=== PATIENT | male | born 1975 | race Caucasian/White ===

== ENCOUNTER 2017-02-20 15:47 | Emergency (ER) | payer OTHER ==
--- NOTE | 2017-02-20 15:59 | Emergency Department Report ---
Chief Complaint: Chest Pain Stated Complaint: CHEST PAIN Time Seen by Provider: 02/20/17 15:57 - HPI History of Present Illness: PT c/o chest pain since last night. pt states he was at work when the chest pain started. - ROS Review of Systems: pain radiating down his L arm - Exam Physical Exam: PT looks well, non toxic. no acute resp distress no focal weakness MSE screening note: Focused history and physical exam performed. Due to findings the following was ordered: ekg, labs, xr ED Disposition for MSE Condition: Stable
[2017-02-20 16:15] LABS: Basophils % (Auto) 1.1 % (0.0-1.8); Eosinophils % (Auto) 1.1 % (0.0-4.3); Hematocrit 42.3 % (35.5-45.6); Hemoglobin 14.3 gm/dl (11.8-15.2); Mean Corpuscular HGB Conc 34 % (32-34); Mean Corpuscular Hemoglobin 31 pg (28-32); Mean Corpuscular Volume 91 fl (84-94); Platelet Count 201 K/mm3 (140-440); Red Blood Count 4.66 M/mm3 (3.65-5.03); Red Cell Distribution Width 14.7 % (13.2-15.2); White Blood Count 6.7 K/mm3 (4.5-11.0)
[2017-02-20 16:24] LABS: INR 0.94 (0.87-1.13)
[2017-02-20 16:25] LABS: Partial Thromboplastin Time 29.1 Sec. (24.2-36.6)
[2017-02-20 16:35] LABS: Alanine Aminotransferase 17 units/L (7-56); Albumin 4.2 g/dL (3.9-5); Albumin/Globulin Ratio 1.4 %; Alkaline Phosphatase 67 units/L (35-129); Anion Gap 19 mmol/L; BUN/Creatinine Ratio 9.09; Blood Urea Nitrogen 10 mg/dL (9-20); Carbon Dioxide 23 mmol/L (22-30); Chloride 102.3 mmol/L (98-107); Creatine Kinase 269 units/L (55-170); Glucose 116 mg/dL (75-100); Potassium 3.6 mmol/L (3.6-5.0); Sodium 141 mmol/L (137-145); Total Protein 7.3 g/dL (6.3-8.2)
--- NOTE | 2017-02-20 16:50 | XRay Report ---
CHEST 2 VIEWS INDICATION: Chest pain. COMPARISON: None similar at this institution. FINDINGS: PA and lateral chest radiographs demonstrate normal cardiomediastinal silhouette. Clear lungs. Intact bones. CONCLUSION: No acute disease in the chest. Thank you for the opportunity to participate in this patient's care.
[2017-02-21] MEDS ORDERED: NORCO 10/325 PO ONE (03:40)
[2017-02-21 04:38] VITALS: BP 117/60
--- NOTE | 2017-02-21 05:13 | Emergency Department Report ---
ED Chest Pain HPI - General Chief Complaint: Chest Pain Stated Complaint: CHEST PAIN Time Seen by Provider: 02/20/17 15:57 Source: patient Mode of arrival: Ambulatory Limitations: No Limitations - History of Present Illness Initial Comments: Patient is a 41-year-old male who presents with chest pain in the left side of his chest. Patient states the chest pain is a 7 out of 10 nothing makes it better or worse it doesn't radiate. He hasn't had any shortness of breath with this. Is an achy type of pain. Patient denies having any nausea or vomiting. He states that this chest pain going on for the last 2 years. He has tried over -the-counter medications without relief. Severity scale (0 -10): 0 - Related Data Allergies Allergy/AdvReac Type Severity Reaction Status Date / Time No Known Allergies Allergy Verified 02/20/17 16:01 Heart Score - HEART Score History: Slightly suspicious EKG: Normal Age: < 45 Risk factors: No known risk factors Troponin: < normal limit HEART Score: 0 ED Review of Systems ROS: Stated complaint: CHEST PAIN Other details as noted in HPI Constitutional: denies: chills, fever Eyes: denies: eye pain, eye discharge, vision change ENT: denies: ear pain, throat pain Respiratory: denies: cough, shortness of breath, wheezing Cardiovascular: chest pain. denies: palpitations Endocrine: no symptoms reported Gastrointestinal: denies: abdominal pain, nausea, diarrhea Genitourinary: denies: urgency, dysuria Musculoskeletal: denies: back pain, joint swelling, arthralgia Skin: denies: rash, lesions Neurological: denies: headache, weakness, paresthesias Psychiatric: denies: anxiety, depression Hematological/Lymphatic: denies: easy bleeding, easy bruising ED Past Medical Hx - Past Medical History Previous Medical History?: Yes - Surgical History Past Surgical History?: No - Social History Smoking Status: Current Every Day Smoker Substance Use Type: None ED Physical Exam - General Limitations: No Limitations General appearance: alert, in no apparent distress - Head Head exam: Present: atraumatic, normocephalic - Eye Eye exam: Present: normal appearance - ENT ENT exam: Present: mucous membranes moist - Neck Neck exam: Present: normal inspection - Respiratory Respiratory exam: Present: normal lung sounds bilaterally. Absent: respiratory distress - Cardiovascular Cardiovascular Exam: Present: regular rate, normal rhythm, other (chest wall tenderness ). Absent: systolic murmur, diastolic murmur, rubs, gallop - GI/Abdominal GI/Abdominal exam: Present: soft, normal bowel sounds - Rectal Rectal exam: Present: deferred - Extremities Exam Extremities exam: Present: normal inspection - Back Exam Back exam: Present: normal inspection - Neurological Exam Neurological exam: Present: alert, oriented X3 - Psychiatric Psychiatric exam: Present: normal affect, normal mood - Skin Skin exam: Present: warm, dry, intact, normal color. Absent: rash ED Course Vital Signs 02/20/17 02/21/17 02/21/17 15:58 02:20 03:02 Temperature 98.3 F 98.1 F 98 F Pulse Rate 70 54 L 60 Respiratory 16 18 18 Rate Blood Pressure 139/82 116/83 Blood Pressure 112/81 [Left] O2 Sat by Pulse 99 100 100 Oximetry 02/21/17 04:19 Temperature 98 F Pulse Rate 60 Respiratory 18 Rate Blood Pressure Blood Pressure 117/60 [Left] O2 Sat by Pulse 99 Oximetry - Reevaluation(s) Reevaluation #1: 02/21/17 05:20 Patient's pain is feeling better also and patient home. YUMIKO score - Yumiko Score Age > 65: (0) No Aspirin use within the Past 7 Days: (0) No 3 or more CAD Risk Factors: (0) No 2 or more Angina events in past 24 hrs: (0) No Known CAD with more than 50% Stenosis: (0) No Elevated Cardiac Markers: (0) No ST Deviation Greater than 0.5mm: (0) No YUMIKO Score: 0 ED Medical Decision Making - Lab Data Result diagrams: 02/20/17 16:02 02/20/17 16:02 Lab Results 02/20/17 02/20/17 02/20/17 Range/Units 16:02 16:02 16:02 WBC 6.7 (4.5-11.0) K/mm3 RBC 4.66 (3.65-5.03) M/mm3 Hgb 14.3 (11.8-15.2) gm/dl Hct 42.3 (35.5-45.6) % MCV 91 (84-94) fl MCH 31 (28-32) pg MCHC 34 (32-34) % RDW 14.7 (13.2-15.2) % Plt Count 201 (140-440) K/mm3 Lymph % (Auto) 45.1 H (13.4-35.0) % Baxter % (Auto) 7.6 H (0.0-7.3) % Eos % (Auto) 1.1 (0.0-4.3) % Baso % (Auto) 1.1 (0.0-1.8) % Lymph # 3.0 (1.2-5.4) K/mm3 Baxter # 0.5 (0.0-0.8) K/mm3 Eos # 0.1 (0.0-0.4) K/mm3 Baso # 0.1 (0.0-0.1) K/mm3 Seg Neutrophils % 45.1 (40.0-70.0) % Seg Neutrophils # 3.0 (1.8-7.7) K/mm3 PT 12.5 (12.2-14.9) Sec. INR 0.94 (0.87-1.13) APTT 29.1 (24.2-36.6) Sec. Sodium 141 (137-145) mmol/L Potassium 3.6 (3.6-5.0) mmol/L Chloride 102.3 (98-107) mmol/L Carbon Dioxide 23 (22-30) mmol/L Anion Gap 19 mmol/L BUN 10 (9-20) mg/dL Creatinine 1.1 (0.8-1.5) mg/dL Estimated GFR > 60 ml/min BUN/Creatinine Ratio 9.09 % Glucose 116 H (75-100) mg/dL Calcium 9.0 (8.4-10.2) mg/dL Total Bilirubin 0.60 (0.1-1.2) mg/dL AST 15 (5-40) units/L ALT 17 (7-56) units/L Alkaline Phosphatase 67 (35-129) units/L Total Creatine Kinase 269 H (55-170) units/L Troponin T < 0.010 (0.00-0.029) ng/mL Total Protein 7.3 (6.3-8.2) g/dL Albumin 4.2 (3.9-5) g/dL Albumin/Globulin Ratio 1.4 % 02/20/17 Range/Units 21:49 WBC (4.5-11.0) K/mm3 RBC (3.65-5.03) M/mm3 Hgb (11.8-15.2) gm/dl Hct (35.5-45.6) % MCV (84-94) fl MCH (28-32) pg MCHC (32-34) % RDW (13.2-15.2) % Plt Count (140-440) K/mm3 Lymph % (Auto) (13.4-35.0) % Baxter % (Auto) (0.0-7.3) % Eos % (Auto) (0.0-4.3) % Baso % (Auto) (0.0-1.8) % Lymph # (1.2-5.4) K/mm3 Baxter # (0.0-0.8) K/mm3 Eos # (0.0-0.4) K/mm3 Baso # (0.0-0.1) K/mm3 Seg Neutrophils % (40.0-70.0) % Seg Neutrophils # (1.8-7.7) K/mm3 PT (12.2-14.9) Sec. INR (0.87-1.13) APTT (24.2-36.6) Sec. Sodium (137-145) mmol/L Potassium (3.6-5.0) mmol/L Chloride (98-107) mmol/L Carbon Dioxide (22-30) mmol/L Anion Gap mmol/L BUN (9-20) mg/dL Creatinine (0.8-1.5) mg/dL Estimated GFR ml/min BUN/Creatinine Ratio % Glucose (75-100) mg/dL Calcium (8.4-10.2) mg/dL Total Bilirubin (0.1-1.2) mg/dL AST (5-40) units/L ALT (7-56) units/L Alkaline Phosphatase (35-129) units/L Total Creatine Kinase (55-170) units/L Troponin T < 0.010 (0.00-0.029) ng/mL Total Protein (6.3-8.2) g/dL Albumin (3.9-5) g/dL Albumin/Globulin Ratio % - EKG Data -: EKG Interpreted by Me - EKG Data 02/21/17 05:21 EKG shows normal sinus rhythm nonspecific T-wave abnormality no ST segment elevation or T-wave. - Medical Decision Making Chief medical diagnosis: Pericarditis Differential medical diagnosis: Rib fracture, pneumothorax CBC, CMP, troponin, EKG, oral analgesic medication Patient has low risk factors and chest pain is likely pulled rib muscle he is tender to palpation on his chest. Critical care attestation.: If time is entered above; I have spent that time in minutes in the direct care of this critically ill patient, excluding procedure time. ED Disposition Clinical Impression: Chest pain Qualifiers: Chest pain type: unspecified Qualified Code(s): R07.9 - Chest pain, unspecified Disposition: DC-01 TO HOME OR SELFCARE Is pt being admited?: No Does the pt Need Aspirin: No Condition: Stable Instructions: Chest Pain (ED), Costochondritis (ED) Referrals: PRIMARY CARE, [Primary Care Provider] - 3-5 Days Time of Disposition: 05:23
== END 2017-02-21 05:40 | disposition home or self-care (01) ==
LOC: ED 15:47
DX: R07.9 Chest pain, unspecified (principal); F17.200 Nicotine dependence, unspecified, uncomplicated
CPT/HCPCS: 36415; 71020; 80053; 82550; 84484; 85025; 85610; 85730; 93005; 93010

== ENCOUNTER 2017-12-18 13:32 | Emergency (ER) | payer BC ==
[2017-12-18 13:43] VITALS: BP 117/72
--- NOTE | 2017-12-18 16:02 | Emergency Department Report ---
ED ENT HPI - General Chief complaint: Earache Stated complaint: EAR AND THROAT PAIN Time Seen by Provider: 12/18/17 15:58 Source: patient Mode of arrival: Ambulatory Limitations: No Limitations - History of Present Illness Initial comments: The patient for 2-year-old -[place]ong[place] male who presents her right ear pain 3 days states mild tinnitus 3/10 pain is exacerbated by nothing patient has not attempted [id number] pain medications stasis history of recurrent otitis media denies cough fevers chills no sore throat no dizziness no headache MD complaint: ear pain Onset/Timin -: days(s) Location: R ear Severity: moderate Severity scale (0 -10): 4 Quality: aching Consistency: intermittent Improves with: none Worsens with: movement - Related Data Previous Rx's Medication Instructions Recorded Last Taken Type Amoxicillin 500 mg PO TID #30 capsule 12/18/17 Unknown Rx Cetirizine HCl [ZyrTEC] 10 mg PO DAILY #30 capsule 12/18/17 Unknown Rx Ibuprofen 800 mg PO TID PRN #30 tablet 12/18/17 Unknown Rx Allergies Allergy/AdvReac Type Severity Reaction Status Date / Time No Known Allergies Allergy Verified 02/20/17 16:01 ED Dental HPI - General Chief complaint: Earache Stated complaint: EAR AND THROAT PAIN Time Seen by Provider: 12/18/17 15:58 Source: patient Mode of arrival: Ambulatory Limitations: No Limitations - Related Data Previous Rx's Medication Instructions Recorded Last Taken Type Amoxicillin 500 mg PO TID #30 capsule 12/18/17 Unknown Rx Cetirizine HCl [ZyrTEC] 10 mg PO DAILY #30 capsule 12/18/17 Unknown Rx Ibuprofen 800 mg PO TID PRN #30 tablet 12/18/17 Unknown Rx Allergies Allergy/AdvReac Type Severity Reaction Status Date / Time No Known Allergies Allergy Verified 02/20/17 16:01 ED Review of Systems ROS: Stated complaint: EAR AND THROAT PAIN Other details as noted in HPI Constitutional: denies: chills, fever Eyes: denies: eye pain, eye discharge, vision change ENT: ear pain. denies: throat pain, dental pain, hearing loss, epistaxis, congestion Respiratory: denies: cough, shortness of breath, wheezing Cardiovascular: denies: chest pain, palpitations Endocrine: no symptoms reported Gastrointestinal: denies: abdominal pain, nausea, diarrhea Genitourinary: denies: urgency, dysuria Musculoskeletal: denies: back pain, joint swelling, arthralgia Skin: denies: rash, lesions Neurological: denies: headache, weakness, paresthesias Psychiatric: denies: anxiety, depression Hematological/Lymphatic: denies: easy bleeding, easy bruising ED Past Medical Hx - Social History Smoking Status: Current Every Day Smoker Substance Use Type: None - Medications Home Medications: Home Medications Medication Instructions Recorded Confirmed Last Taken Type Amoxicillin 500 mg PO TID #30 capsule 12/18/17 Unknown Rx Cetirizine HCl [ZyrTEC] 10 mg PO DAILY #30 capsule 12/18/17 Unknown Rx Ibuprofen 800 mg PO TID PRN #30 tablet 12/18/17 Unknown Rx ED Physical Exam - General Limitations: No Limitations General appearance: alert, in no apparent distress - Head Head exam: Present: atraumatic, normocephalic - Eye Eye exam: Present: normal appearance, PERRL, EOMI Pupils: Present: normal accommodation - ENT ENT exam: Present: normal orophraynx, mucous membranes moist, normal external ear exam - Expanded ENT Exam Expanded TM/Canal exam: Erythema: Right TM, Canal Tenderness: Right TM - Neck Neck exam: Present: normal inspection - Respiratory Respiratory exam: Present: normal lung sounds bilaterally. Absent: respiratory distress - Cardiovascular Cardiovascular Exam: Present: regular rate, normal rhythm. Absent: systolic murmur, diastolic murmur, rubs, gallop - GI/Abdominal GI/Abdominal exam: Present: soft, normal bowel sounds - Rectal Rectal exam: Present: deferred - Extremities Exam Extremities exam: Present: normal inspection - Back Exam Back exam: Present: normal inspection - Neurological Exam Neurological exam: Present: alert, oriented X3, CN II-XII intact, normal gait, reflexes normal - Psychiatric Psychiatric exam: Present: normal affect, normal mood - Skin Skin exam: Present: warm, dry, intact, normal color. Absent: rash ED Course Vital Signs 12/18/17 13:40 Temperature 98.1 F Pulse Rate 60 Respiratory 16 Rate Blood Pressure 117/72 O2 Sat by Pulse 99 Oximetry ED Medical Decision Making - Medical Decision Making Noted right TM erythema pain with movement swelling no decreased hearing no throat pain no fever no chills plan treat for otitis media amoxicillin ibuprofen follow with PCP in 2-3 days patient verbalizes understanding and agreement with same Critical care attestation.: If time is entered above; I have spent that time in minutes in the direct care of this critically ill patient, excluding procedure time. ED Disposition Clinical Impression: AOM (acute otitis media) Qualifiers: Otitis media type: serous Laterality: right Recurrence: not specified as recurrent Qualified Code(s): H65.01 - Acute serous otitis media, right ear Disposition: TO HOME OR SELFCARE Is pt being admited?: No Does the pt Need Aspirin: No Condition: Good Instructions: Otitis Media (ED) Prescriptions: Amoxicillin 500 mg PO TID #30 capsule Cetirizine HCl [ZyrTEC] 10 mg PO DAILY #30 capsule Ibuprofen 800 mg PO TID PRN #30 tablet PRN Reason: Pain Referrals: PRIMARY CARE, [Primary Care Provider] - 3-5 Days Forms: Work/School Release Form(ED) Time of Disposition: 16:06
== END 2017-12-18 16:09 | disposition home or self-care (01) ==
LOC: ED 13:32
DX: H65.01 Acute serous otitis media, right ear (principal); F17.200 Nicotine dependence, unspecified, uncomplicated
CPT/HCPCS: 99282

== ENCOUNTER 2019-01-20 17:39 | Emergency (ER) | payer SELFPAY ==
[2019-01-20 17:58] VITALS: BP 129/67
--- NOTE | 2019-01-20 18:18 | Emergency Department Report ---
Chief Complaint: Urogenital-Male Stated Complaint: STD CHECK/SINUS Time Seen by Provider: 01/20/19 18:09 - HPI History of Present Illness: This is a 43-year-old male nontoxic, well in appearance with no signs of distress presents to the ED for STD check and nasal congestion. Patient stated that his partner called and said has STD. Patient stated he is asymptotic. Denies any penile discharge, testicular pain, or swelling. Patient denies any urinary symptoms. Patient denies any fever, chills, headache, nausea, vomiting, chest pain or shortness of breathe. denies any other symptoms or complaints. Denies any allergies or PMH. - Exam Vital Signs: Vital Signs 01/20/19 17:54 Temperature 98.2 F Pulse Rate 75 Respiratory 18 Rate Blood Pressure 129/67 O2 Sat by Pulse 100 Oximetry Physical Exam: no cough. no abdominal pain. no penile pain. no discharge or urinary symptoms. normal nasal exam. no sinus tenderness. MSE screening note: Focused history and physical exam performed. Due to findings the following was ordered: ED Medical Decision Making - Medical Decision Making This is a 43-year-old male that presents with nonmedical emergency complaint. Patient is just requested for a STD test. Patient denies any symptoms. Patient was approached by registration for insurance or copay but patient refused. I gave patient many different referrals to follow-up with STD concerns. Patient was instructed to Follow-up with a primary care doctor in 3-5 days or if symptoms worsen and continue return to emergency room as soon as possible. At time of discharge, the patient does not seem toxic or ill in appearance. No acute signs of distress noted. Patient agrees to discharge treatment plan of care. No further questions noted by the patient. ED Disposition for MSE Clinical Impression: Possible exposure to STD Disposition: Z-07 MED SCREENING EXAM-LEFT Is pt being admited?: No Does the pt Need Aspirin: No Condition: Stable Instructions: Safe Sex (ED) Additional Instructions: Follow-up with a primary care doctor, [facility] in 3-5 days or if symptoms worsen and continue return to emergency room as soon as possible. Referrals: PRIMARY CAREMD [Referring] - 3-5 Days KIRBY PENDLETON MD [Staff Physician] - 3-5 Days [facility] [Outside] - 3-5 Days [facility] [Outside] - 3-5 Days
== END 2019-01-20 19:00 | disposition left against medical advice (07) ==
LOC: ED 17:39
DX: Z20.2 Contact with and (suspected) exposure to infections with a predominantly sexual mode of transmission (principal)
CPT/HCPCS: 99282

== ENCOUNTER 2019-03-15 13:37 | Emergency (ER) | payer OTHER ==
--- NOTE | 2019-03-15 13:42 | Event Note ---
ED Screening Note Date of service: 03/15/19 Time: 13:40 ED Screening Note: 43 y o male presents with left ear pain radiating to jaw and head x 3 days states hx of sinus issue This initial assessment/diagnostic orders/clinical plan/treatment(s) is/are subject to change based on patients health status, clinical progression and re- assessment by fellow clinical providers in the ED. Further treatment and workup at subsequent clinical providers discretion. Patient/guardian urged not to elope from the ED as their condition may be serious if not clinically assessed and managed. Initial orders include:
[2019-03-15 13:50] VITALS: BP 127/73
--- NOTE | 2019-03-15 16:25 | Emergency Department Report ---
ED ENT HPI - General Chief complaint: Earache Stated complaint: EAR ACHE Time Seen by Provider: 03/15/19 13:40 Source: patient Mode of arrival: Ambulatory Limitations: No Limitations - Related Data Previous Rx's Medication Instructions Recorded Last Taken Type Amoxicillin 500 mg PO TID #30 capsule 12/18/17 Unknown Rx Cetirizine HCl [ZyrTEC] 10 mg PO DAILY #30 capsule 12/18/17 Unknown Rx Ibuprofen [Ibuprofen 800] 800 mg PO TID PRN #30 tablet 12/18/17 Unknown Rx Amoxicillin/K Clav Tab [Augmentin 1 tab PO Q12HR #14 tab 03/15/19 Unknown Rx 875 mg] Ibuprofen [Motrin] 800 mg PO Q8HR PRN #30 tablet 03/15/19 Unknown Rx Pseudoephedrine ER [Sudafed 12 Hr] 120 mg PO BID #20 tablet.er 03/15/19 Unknown Rx Allergies Allergy/AdvReac Type Severity Reaction Status Date / Time No Known Allergies Allergy Verified 02/20/17 16:01 ED Dental HPI - General Chief complaint: Earache Stated complaint: EAR ACHE Time Seen by Provider: 03/15/19 13:40 Source: patient Mode of arrival: Ambulatory Limitations: No Limitations - Related Data Previous Rx's Medication Instructions Recorded Last Taken Type Amoxicillin 500 mg PO TID #30 capsule 12/18/17 Unknown Rx Cetirizine HCl [ZyrTEC] 10 mg PO DAILY #30 capsule 12/18/17 Unknown Rx Ibuprofen [Ibuprofen 800] 800 mg PO TID PRN #30 tablet 12/18/17 Unknown Rx Amoxicillin/K Clav Tab [Augmentin 1 tab PO Q12HR #14 tab 03/15/19 Unknown Rx 875 mg] Ibuprofen [Motrin] 800 mg PO Q8HR PRN #30 tablet 03/15/19 Unknown Rx Pseudoephedrine ER [Sudafed 12 Hr] 120 mg PO BID #20 tablet.er 03/15/19 Unknown Rx Allergies Allergy/AdvReac Type Severity Reaction Status Date / Time No Known Allergies Allergy Verified 02/20/17 16:01 ED Review of Systems ROS: Stated complaint: EAR ACHE Other details as noted in HPI ED Past Medical Hx - Past Medical History Previous Medical History?: No - Surgical History Past Surgical History?: No - Social History Smoking Status: Current Every Day Smoker Substance Use Type: Marijuana - Medications Home Medications: Home Medications Medication Instructions Recorded Confirmed Last Taken Type Amoxicillin 500 mg PO TID #30 capsule 12/18/17 Unknown Rx Cetirizine HCl [ZyrTEC] 10 mg PO DAILY #30 capsule 12/18/17 Unknown Rx Ibuprofen [Ibuprofen 800] 800 mg PO TID PRN #30 tablet 12/18/17 Unknown Rx Amoxicillin/K Clav Tab [Augmentin 1 tab PO Q12HR #14 tab 03/15/19 Unknown Rx 875 mg] Ibuprofen [Motrin] 800 mg PO Q8HR PRN #30 tablet 03/15/19 Unknown Rx Pseudoephedrine ER [Sudafed 12 Hr] 120 mg PO BID #20 tablet.er 03/15/19 Unknown Rx ED Physical Exam - General Limitations: No Limitations ED Course Vital Signs 03/15/19 13:49 Temperature 98.4 F Pulse Rate 86 Respiratory 16 Rate Blood Pressure 127/73 O2 Sat by Pulse 100 Oximetry Critical care attestation.: If time is entered above; I have spent that time in minutes in the direct care of this critically ill patient, excluding procedure time. ED Disposition Clinical Impression: Acute sinusitis, Earache on left Disposition: DC-01 TO HOME OR SELFCARE Is pt being admited?: No Does the pt Need Aspirin: No Condition: Stable Instructions: Sinusitis (ED), Earache (ED) Additional Instructions: Take your medications as prescribed. Follow-up with your doctor or the clinic/doctor provided. Return if symptoms worsen. Prescriptions: Amoxicillin/K Clav Tab [Augmentin 875 mg] 1 tab PO Q12HR #14 tab Ibuprofen [Motrin] 800 mg PO Q8HR PRN #30 tablet PRN Reason: Pain , Severe (7-10) Pseudoephedrine ER [Sudafed 12 Hr] 120 mg PO BID #20 tablet.er Referrals: SILVA ALONSO MD [Primary Care Provider] - 3-5 Days [facility] [Provider Group] - 3-5 Days CEE LEES MD [Staff Physician] - 3-5 Days Time of Disposition: 16:25
--- NOTE | 2019-03-15 16:48 | Emergency Department Report ---
ED ENT HPI - General Chief complaint: Earache Stated complaint: EAR ACHE Time Seen by Provider: 03/15/19 13:40 Source: patient Mode of arrival: Ambulatory Limitations: No Limitations - History of Present Illness Initial comments: 43-year-old male with no significant past medical history presents the hospital complaining of sinus congestion and earache 10 days. Pain is at the top of the nose/forehead area and left ear. Pain is moderate and intermittent. Positive nasal congestion. No purulent nasal drainage or ear drainage reported. Patient has not gone swimming recently. - Related Data Previous Rx's Medication Instructions Recorded Last Taken Type Amoxicillin 500 mg PO TID #30 capsule 12/18/17 Unknown Rx Cetirizine HCl [ZyrTEC] 10 mg PO DAILY #30 capsule 12/18/17 Unknown Rx Ibuprofen [Ibuprofen 800] 800 mg PO TID PRN #30 tablet 12/18/17 Unknown Rx Amoxicillin/K Clav Tab [Augmentin 1 tab PO Q12HR #14 tab 03/15/19 Unknown Rx 875 mg] Ibuprofen [Motrin] 800 mg PO Q8HR PRN #30 tablet 03/15/19 Unknown Rx Pseudoephedrine ER [Sudafed 12 Hr] 120 mg PO BID #20 tablet.er 03/15/19 Unknown Rx Allergies Allergy/AdvReac Type Severity Reaction Status Date / Time No Known Allergies Allergy Verified 02/20/17 16:01 ED Dental HPI - General Chief complaint: Earache Stated complaint: EAR ACHE Time Seen by Provider: 03/15/19 13:40 Source: patient Mode of arrival: Ambulatory Limitations: No Limitations - Related Data Previous Rx's Medication Instructions Recorded Last Taken Type Amoxicillin 500 mg PO TID #30 capsule 12/18/17 Unknown Rx Cetirizine HCl [ZyrTEC] 10 mg PO DAILY #30 capsule 12/18/17 Unknown Rx Ibuprofen [Ibuprofen 800] 800 mg PO TID PRN #30 tablet 12/18/17 Unknown Rx Amoxicillin/K Clav Tab [Augmentin 1 tab PO Q12HR #14 tab 03/15/19 Unknown Rx 875 mg] Ibuprofen [Motrin] 800 mg PO Q8HR PRN #30 tablet 03/15/19 Unknown Rx Pseudoephedrine ER [Sudafed 12 Hr] 120 mg PO BID #20 tablet.er 03/15/19 Unknown Rx Allergies Allergy/AdvReac Type Severity Reaction Status Date / Time No Known Allergies Allergy Verified 02/20/17 16:01 ED Review of Systems ROS: Stated complaint: EAR ACHE Other details as noted in HPI Comment: All other systems reviewed and negative ED Past Medical Hx - Past Medical History Previous Medical History?: No - Surgical History Past Surgical History?: No - Social History Smoking Status: Current Every Day Smoker Substance Use Type: Marijuana - Medications Home Medications: Home Medications Medication Instructions Recorded Confirmed Last Taken Type Amoxicillin 500 mg PO TID #30 capsule 12/18/17 Unknown Rx Cetirizine HCl [ZyrTEC] 10 mg PO DAILY #30 capsule 12/18/17 Unknown Rx Ibuprofen [Ibuprofen 800] 800 mg PO TID PRN #30 tablet 12/18/17 Unknown Rx Amoxicillin/K Clav Tab [Augmentin 1 tab PO Q12HR #14 tab 03/15/19 Unknown Rx 875 mg] Ibuprofen [Motrin] 800 mg PO Q8HR PRN #30 tablet 03/15/19 Unknown Rx Pseudoephedrine ER [Sudafed 12 Hr] 120 mg PO BID #20 tablet.er 03/15/19 Unknown Rx ED Physical Exam - General Limitations: No Limitations - Other Other exam information: Normal: No acute distress Head: Atraumatic Eyes: Normal appearance, pupils equally reactive to light, extraocular movements intact ENT: Moist mucous membranes, tenderness to the mid frontal sinus area, nasal congestion, bilateral TMs normal with good light reflex, mild erythema to left ear canal. Patient admits to using Q-tips. No preauricular lymphadenopathy. Neck: Normal appearance, no midline cervical tenderness, no meningismus Chest: Clear to auscultation bilaterally, no wheezes, rales, crackles Cardiovascular: Regular rate and rhythm Abdomen: Soft, nontender, nondistended, no rebound or guarding, normal bowel sounds Back: Normal inspection Extremity: Normal appearance, full range of motion Neuro: Alert and oriented 3, speech normal, no gross motor sensory deficit Psych: Appropriate Skin: No rash ED Course Vital Signs 03/15/19 13:49 Temperature 98.4 F Pulse Rate 86 Respiratory 16 Rate Blood Pressure 127/73 O2 Sat by Pulse 100 Oximetry ED Medical Decision Making - Medical Decision Making Patient has symptoms of sinusitis. Will BE covered with antibiotics, decongestants, and pain medication outpatient follow-up encouraged. - Differential Diagnosis sinusitis, otitis media, otitis externa Critical Care Time: No Critical care attestation.: If time is entered above; I have spent that time in minutes in the direct care of this critically ill patient, excluding procedure time. ED Disposition Clinical Impression: Acute sinusitis, Earache on left Disposition: TO HOME OR SELFCARE Is pt being admited?: No Condition: Stable Instructions: Sinusitis (ED), Earache (ED) Additional Instructions: Take your medications as prescribed. Follow-up with your doctor or the clinic/doctor provided. Return if symptoms worsen. Prescriptions: Amoxicillin/K Clav Tab [Augmentin 875 mg] 1 tab PO Q12HR #14 tab Ibuprofen [Motrin] 800 mg PO Q8HR PRN #30 tablet PRN Reason: Pain , Severe (7-10) Pseudoephedrine ER [Sudafed 12 Hr] 120 mg PO BID #20 tablet.er Referrals: [facility] [Provider Group] - 3-5 Days PRIMARY [facility]ARE, [Primary Care Provider] - 3-5 Days CEE LEES MD [Staff Physician] - 3-5 Days Time of Disposition: 16:30
== END 2019-03-15 16:42 | disposition home or self-care (01) ==
LOC: ED 13:37
DX: J01.10 Acute frontal sinusitis, unspecified (principal); H92.02 Otalgia, left ear; F17.200 Nicotine dependence, unspecified, uncomplicated; F12.10 Cannabis abuse, uncomplicated; Z79.899 Other long term (current) drug therapy; Z79.1 Long term (current) use of non-steroidal anti-inflammatories (NSAID)
CPT/HCPCS: 99282

== ENCOUNTER 2019-07-22 10:48 | Emergency (ER) | payer SELFPAY ==
[2019-07-22 12:27] VITALS: BP 129/74
--- NOTE | 2019-07-22 12:33 | Event Note ---
ED Screening Note ED Screening Note: states he began feeling flu like symptoms that began two days ago states that he has generalized body aches he states that he is feeling better today headache mild cough no fever no rhinorrhea no sore throat no ear pain +diarrhea no vomiting no known sick contacts PMHx none no daily meds no allergies to meds +tobacco, 1 cigar every other day +marijuana no ETOH no other drugs
--- NOTE | 2019-07-22 12:37 | Emergency Department Report ---
Chief Complaint: Upper Respiratory Infection Stated Complaint: FLU SX Time Seen by Provider: 07/22/19 12:26 - HPI History of Present Illness: states he began feeling "flu like" symptoms that began two days ago states that he has generalized body aches he states that he is feeling better today has associated headache, mild dry cough, couple episodes of diarrhea he denies any fever, rhinorrhea, sore throat, ear pain, vomiting, CP, SOB no known sick contacts PMHx none no daily meds no allergies to meds +tobacco, 1 cigar every other day +marijuana no ETOH no other drugs vitals are normal pt is afebrile, no tachycardia on exam: non toxic appearing, no acute distress normal oropharynx normal TMs and canals bilaterally normal turbinates bilaterally heart sounds are normal, no gallops, no rubs, no murmurs, normal rate, rhythm normal breath sounds no w/r/r pt is presenting with viral like illness unlikely influenza without a fever no clinical s/sx of PNA pt is presenting with a non medical emergency at this time medical screening examination performed, there is no threat to life or limb at this time discussed the importance of oral rehydration and supportive care will have pt follow up with PCP pt given strict return precautions - Exam Vital Signs: Vital Signs 07/22/19 12:23 Temperature 98.3 F Pulse Rate 84 Respiratory 20 Rate Blood Pressure 129/74 O2 Sat by Pulse 98 Oximetry MSE screening note: Focused history and physical exam performed. ED Disposition for MSE Clinical Impression: Viral illness, Tobacco abuse Disposition: Z-07 MED SCREENING EXAM-LEFT Is pt being admited?: No Does the pt Need Aspirin: No Condition: Stable Instructions: How to Stop Smoking (ED), Viral Syndrome (ED) Additional Instructions: please increase your fluid intake over the next several days. if begin running a fever may alternate tylenol then ibuprofen. may take over the counter cough/cold medication such as mucinex or robitussin. please follow up with a primary care doctor in the next 2-3 days. return to the emergency room immediately for any new or worsening symptoms such as shortness of breath, cough with brown/white sputum production, high fevers, unable to keep solids or liquids down, etc. Referrals: KYLE ARNOLD MD [Staff Physician] - 2-3 Days [facility] [Outside] - 2-3 Days [facility] [Outside] - 2-3 Days Forms: Work/School Release Form(ED) Time of Disposition: 12:34 Print Language: CHADIAN
== END 2019-07-22 13:07 | disposition left against medical advice (07) ==
LOC: ED 10:48
DX: B34.9 Viral infection, unspecified (principal); F17.200 Nicotine dependence, unspecified, uncomplicated; F12.10 Cannabis abuse, uncomplicated